=== PATIENT | female | born 1965 | race African-American/Black ===

== ENCOUNTER 2016-06-12 16:37 | Emergency (ER) | payer MEDICAID ==
[2016-06-12 17:15] VITALS: TEMP 100.2; BMI 30.5
[2016-06-12 17:39] LABS: AUTOMATED BASOPHIL 0.9 % (0-2); AUTOMATED EOSINOPHIL 0.7 % (0-5); AUTOMATED LYMPH 16.1 % (17-44); AUTOMATED MONOCYTE 6.8 % (3-10); AUTOMATED NEUTROPHIL 75.5 % (45-76); MPV 9.3 fL (7.4-10.4); RBC/URINE TNTC (0-5)
[2016-06-12 17:41] LABS: LEUKOCYTES/URINE NEG (NEGATIVE); NITRITE/URINE NEG (NEGATIVE); URINE OCCULT BLOOD 3+ (NEG/TRACE)
[2016-06-12 17:55] LABS: BLOOD UREA NITROGEN 12 MG/DL (7-17); CALCIUM 9.2 MG/DL (8.4-10.2); CALCULATED OSMOLALITY 270 MOs/Kg (270-290); CHLORIDE 102 mEq/L (98-107); GLUCOSE 110 MG/DL (70-99); SODIUM LEVEL 140 mEq/L (137-146); TOTAL PROTEIN 8.4 G/DL (6.3-8.2)
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
--- NOTE | 2016-06-12 20:19 | DIRPT ---
CLINICAL DATA: Current smoker presenting with acute onset of productive cough and low-grade fever. Patient also complains of right lower quadrant abdominal pain and vaginal bleeding. EXAM: CHEST 2 VIEW COMPARISON: None. FINDINGS: Cardiomediastinal silhouette unremarkable, unchanged. Lungs clear. Bronchovascular markings normal. Pulmonary vascularity normal. No visible pleural effusions. No pneumothorax. Mild degenerative changes involving the thoracic spine. IMPRESSION: No acute cardiopulmonary disease. Electronically Signed By: Wilfrid Triplett M.D. On: 06/12/2016 20:16
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
[2016-06-12] MEDS ORDERED: AZITHROMYCIN 250 MG TAB PO ONE (20:26)
[2016-06-12 21:00] VITALS: BP 148/77; PULSE 85
== END 2016-06-12 20:56 | disposition home or self-care (01) ==
LOC: ED 16:37
DX: J01.90 Acute sinusitis, unspecified (principal)
CPT/HCPCS: 36415; 71020; 74176; 80053; 81001; 81025; 85025; 99283; J3490

== ENCOUNTER 2016-06-13 18:32 | Emergency (ER) | payer MEDICAID ==
[2016-06-13 18:47] VITALS: BP 121/64; PULSE 84; TEMP 102.9; BMI 26.9
[2016-06-13] MEDS: ACETAMINOPHEN 325 MG/TAB TABLET PO ONE ×2 (18:56→18:58)
== END 2016-06-13 20:36 | disposition left against medical advice (07) ==
LOC: ED 18:32
DX: R10.9 Unspecified abdominal pain (principal)
CPT/HCPCS: J3490

== ENCOUNTER 2016-06-14 08:41 | Emergency (ER) | payer MEDICAID ==
[2016-06-14 08:51] VITALS: BP 126/70; PULSE 79; TEMP 98.8; BMI 29.9
--- NOTE | 2016-06-14 09:04 | EDPRACDOC ---
- General Information Chief Complaint: Abdominal Pain Stated Complaint: LOWER ABDOMINAL PAIN Time Seen by Provider: 06/14/16 08:56 Mode Of Arrival: Car Home Medications: Home Medications Azithromycin 250 mg PO DAILY #4 tablet 06/12/16 Hydrocodone Bit/Acetaminophen [Hydrocodon-Acetaminophen 5-325] 1 tab PO Q6 PRN # 20 tab 06/14/16 Allergies/Adverse Reactions: Allergies Allergy/AdvReac Type Severity Reaction Status Date / Time Iodinated Contrast Media - Allergy Difficulty Verified 06/14/16 08:51 IV Dye Breathing - History of Present Illness Onset: 4-5 DAYS HPI: PT COMPLAINS OF RLQ AND SUPRAPUBIC ABD PAIN X 4-5 DAYS WITH IRREGULAR VAGINAL BLEEDING, PT STATES TAKING ALEVE WITHOUT RELIEF. PT SEEN IN THE ED ON 06/12/16 FOR SAME, CT THEN SHOWED UTERINE FIBROIDS, PT STATES SHE DOES NOT HAVE A [employer] SURVEYOR. Pain Location: Reports: RLQ, Suprapubic Pain Context: Reports: Spontaneous Pain Severity: Severe Pain Quality: Reports: Cramping Pain Radiation: Reports: No Radiation Last Menstrual Period: 1 WK AGO Adult Abdominal History: Denies: Abdominal Surgery, Urolithiasis, Bowel Obstruction, Similar Pain (dx) Female Abdominal History: Denies: Abdominal Surgery, UTI, Ectopic, PID, Urolithiasis, Similar Pain (dx) Modifying Factors: improves with: Nothing Female Associated Signs & Symptoms: Reports: Nausea, Vaginal Bleeding. Denies: Frequency, Vomiting, Hematemesis, Anorexia, Diarrhea, Melena, Dysuria, Fever, Urgency, Hematuria, Chills, Vaginal Discharge Oral Intake: Normal Urinary Output: Normal - Treatment Prior to ED Arrival Reported Medications/Treatment MID LEVEL PROVIDER Treated With Medication MID LEVEL PROVIDER YES Ibuprofen/Acetaminophen (Dose/ ALEVE X 2-0230 Time) ED Past Medical History - History Reviewed Yes Nurses notes reviewed and agree except as marked No Past Medical History: Yes Patient has no past medical history - Patient Medical History Psychological History: Denies: Depression Surgical History: Denies: Hysterectomy - Social Medical History Smoking Status: Never smoker ETOH: None Substance Abuse: None EDM Review of Systems - Review of Systems Constitutional: negative: Chills, Fever Eyes: negative: Blurred Vision, Double Vision Ears: negative: Drainage Throat: negative: Pain Nose: negative: Congestion, Discharge Respiratory: negative: Cough, Shortness of Breath, Wheezing Cardiovascular: negative: Chest Pain, Palpitations Gastrointestinal: Nausea, Pain. negative: Diarrhea, Vomiting Genitourinary: Vaginal Bleeding. negative: Dysuria, Frequency Neurological: negative: Dizziness, Headache, Numbness, Weakness Musculoskeletal: No Symptoms Reported Integumentary: No Symptoms Reported - Physical Exam Constitutional: Alert (Awake), No apparent distress Oriented to: Time, Person, Place Last recorded Vital Signs: Last Vital Signs Temp 98.8 F 06/14/16 08:47 Pulse 79 06/14/16 08:47 Resp 18 06/14/16 08:47 BP 126/70 06/14/16 08:47 Pulse Ox 97 06/14/16 08:47 Oxygen Pulse Oxygen Saturation 97 O2 Device Oxygen Flow Rate Fraction of Inspired Oxygen ( FIO2) - HEENT Head: Normal ( normocephalic) Eye Exam: Normal (PERRL, EOMI, Sclera white) Oropharynx: Normal (Pharynx:Moist without exudate,Gums-no swelling) Tympanic Membrane: Normal ENT EAC: Normal TMJ: Normal Nose: No Symptoms Reported (septum midline) Neck: Normal (FROM, trachea at midline) - Respiratory/Cardiovascular Respiratory: Normal - CTA (BBS clear to auscultation without adventitious sounds ) Cardiovascular: Normal (RRR without murmur, gallop or rub) - GI Auscultation: Normal (NABS) Palpation: Normal (Soft,No rebound or guarding, non distended) Tenderness: Moderate, RLQ, LLQ, Suprapubic. negative: Rebound, Rigidity Coronado's Sign: Negative - Musculoskeletal Back: Normal (Non-Tender) Extremities: Normal (Normal tone, Pulses 2+ No cyanosis or edema, FROM) - Integumentary Skin: Normal, Warm, Dry Lymphatics: Normal (no adenopathy) - Neurologic Memory Impaired: Normal Motor Function: Normal (Normal tone, Pulses 2+ No cyanosis or edema, FROM) Cranial Nerve: Normal (CN II-X11 intact sensation, strength 5/5) Cerebellar: Normal Mood Description: Normal Perception: Normal - Differential Diagnosis Appendicitis, Cholecystitis, Cholelithiasis, Constipation, Diverticulitis, IBS, Pancreatitis, UTI - Additional Information RECORDS FROM 06/12/16 REVIEWED, PT HAD THOROUGH EVALUATION INCLUDING LABS (ALL NORMAL), CT UROGRAM WAS NON-ACUTE, DID SHOW NL APPENDIX AND UTERINE FIBROIDS. PT ADVISED OF PREVIOUS RESULTS, WILL NEED TO SEE PHARMACY INFORMATICS MANAGER. Decision Time to Discharge: 09:06 - Departure Disposition: Home Condition: Stable Final Diagnosis: Recurrent abdominal pain, UTERINE FIBROIDS Instructions: Abdominal Pain (ED), Uterine Fibroids (ED) Education/Counseling Given To: Patient, Family Member Education/Counseling Given Regarding: Diagnosis, Treatment, Prognosis, Follow Up Referrals: Sri Engle DO [Staff Physician] - One Week Prescriptions: New Hydrocodone Bit/Acetaminophen [Hydrocodon-Acetaminophen 5-325] 1 tab PO Q6 PRN #20 tab PRN Reason: Pain Continue Azithromycin 250 mg PO DAILY #4 tablet Additional Instructions: YOU MUST FOLLOW UP WITH [employer] SURVEYOR FOR FURTHER EVALUATION.
[2016-06-14] MEDS ORDERED: HYDROCODONE 5 MG/ACETAMIN 325 MG TAB PO ONE (09:08)
== END 2016-06-14 09:15 | disposition home or self-care (01) ==
LOC: ED 08:41
DX: D25.9 Leiomyoma of uterus, unspecified (principal); R10.30 Lower abdominal pain, unspecified
CPT/HCPCS: 99283; J3490

== ENCOUNTER 2016-06-16 21:20 | Emergency (ER) | payer MEDICAID ==
[2016-06-16 21:36] VITALS: TEMP 98.9; BMI 30.1
[2016-06-16] MEDS ORDERED: ONDANSETRON HCL 4 MG ODT TAB PO ONE (22:07)
[2016-06-16] MEDS ORDERED: MORPHINE 4 MG/ML INJECTION IM ONE (22:07)
[2016-06-16 22:32] LABS: MPV 9.7 fL (7.4-10.4)
[2016-06-16 22:38] LABS: LEUKOCYTES/URINE NEG (NEGATIVE); NITRITE/URINE NEG (NEGATIVE); RBC/URINE 0-2 (0-5); URINE OCCULT BLOOD NEG (NEG/TRACE); WBC/URINE 0-2 (0-5)
[2016-06-16 22:44] LABS: BLOOD UREA NITROGEN 10 MG/DL (7-17); CALC CORRECTED 8.9 MG/DL (8.4-10.2); CALCIUM 8.7 MG/DL (8.4-10.2); CALCULATED OSMOLALITY 269 MOs/Kg (270-290); CHLORIDE 103 mEq/L (98-107); GLUCOSE 109 mg/dL (70-99); SODIUM LEVEL 140 mEq/L (137-146); TOTAL PROTEIN 8.2 G/DL (6.3-8.2)
[2016-06-16 22:52] VITALS: BP 138/67; PULSE 78
--- NOTE | 2016-06-16 23:03 | EDPRACDOC ---
- General Information Chief Complaint: Vaginal Bleeding Stated Complaint: LOWER ABD PAIN WITH COUGH Time Seen by Provider: 06/16/16 21:37 Information Source: Patient Mode of Arrival: Car Home Medications: Home Medications Azithromycin 250 mg PO DAILY #4 tablet 06/12/16 Hydrocodone Bit/Acetaminophen [Hydrocodon-Acetaminophen 5-325] 1 tab PO Q6 PRN # 20 tab 06/14/16 Medroxyprogesterone [Provera] 10 mg PO DAILY #10 tab 06/16/16 Oxycodone Immediate Release [Oxycodone Immediate Release (OxyIR)] 5 mg PO Q6H PRN #20 tab 06/16/16 Allergies/Adverse Reactions: Allergies Allergy/AdvReac Type Severity Reaction Status Date / Time Iodinated Contrast Media - Allergy Difficulty Verified 06/14/16 08:51 IV Dye Breathing - History of Present Illness Onset: 1 WEEK HPI: PT PRESENTS WITH LOWER ABDOMINAL PAIN WITH STATED VAGINAL BLEEDING. SHE STATES SHE HAD SEVERAL DAYS OF VAGINAL BLEEDING AND WAS SEEN HERE ON 06/12/2016, RECORDS REVIEWED FROM THAT VISIT AND FROM 06/14/2016 VISIT. PT FOUND TO HAVE UTERINE FIBROIDS AND A UTI. STATES THE BLEEDING STOPPED AND THEN RESTARTED AGAIN. STATES SHE HAS BEEN SEEN AT TWO OTHER FACILITIES ([facility]) . SHE WAS INSTRUCTED HERE THAT SHE NEEDED TO BE SEEN BY AN ELECTRO MECHANICAL DESIGNER FOR FURTHER EVALUATION. SHE STATES SHE HAS ATTEMPTED TO DO THIS BUT HER PCP HAS NOT SENT A REFERRAL AT THIS TIME. Description: Reports: Spontaneous Location: Reports: Internal Vagina Relevant History: Reports: None Control Method: Reports: None Pain Severity: Moderate Vaginal Bleeding Description: Reports: Bright Red Associated Signs & Symptoms: Reports: Abdominal Pain, Vaginal Bleeding ED Past Medical History - History Reviewed Yes Nurses notes reviewed and agree except as marked - Patient Medical History GI/ History: Denies: Urinary Tract Infection Psychological History: Denies: Depression Surgical History: Denies: Hysterectomy - Social Medical History Smoking Status: Never smoker EDM Review of Systems - Review of Systems ROS Negative Except as Marked: Yes All systems reviewed and were negative except as marked - Physical Exam Constitutional: Alert Oriented to: Time, Person, Place Last recorded Vital Signs: Last Vital Signs Temp 98.9 F 06/16/16 21:30 Pulse 78 06/16/16 22:50 Resp 20 06/16/16 22:50 BP 138/67 06/16/16 22:50 Pulse Ox 95 06/16/16 22:50 Oxygen Pulse Oxygen Saturation 95 O2 Device Room Air Oxygen Flow Rate Fraction of Inspired Oxygen ( FIO2) - HEENT Head: Normal ( normocephalic) Eye Exam: Normal (PERRL, EOMI, Sclera white) Oropharynx: Normal (Pharynx:Moist without exudate,Gums-no swelling) Nose: No Symptoms Reported (septum midline) Neck: Normal (FROM, trachea at midline) - Respiratory/Cardiovascular Respiratory: Normal - CTA (BBS clear to auscultation without adventitious sounds ) Cardiovascular: Normal (RRR without murmur, gallop or rub) - GI Auscultation: Normal (NABS) Palpation: Normal (Soft,No rebound or guarding, non distended) Tenderness: Non tender Coronado's Sign: Negative Rectal Exam: Deferred - Musculoskeletal Back: Normal (Non-Tender) Extremities: Normal (Normal tone, Pulses 2+ No cyanosis or edema, FROM) - Integumentary Skin: Normal, Warm, Dry Lymphatics: Normal (no adenopathy) - Neurologic Memory Impaired: Normal Motor Function: Normal (Normal tone, Pulses 2+ No cyanosis or edema, FROM) Cranial Nerve: Normal (CN II-X11 intact sensation, strength 5/5) Cerebellar: Normal Mood Description: Normal Perception: Normal - Differential Diagnosis Other - Results 06/16/16 22:15 06/16/16 22:15 WBC 5.0 xk/uL (3.8-10.8) 06/16/16 22:15 RBC 3.55 xM/uL (4.20-5.40) L 06/16/16 22:15 Hgb 11.7 g/dL (12.0-16.0) L 06/16/16 22:15 Hct 34.9 % (36-47) L 06/16/16 22:15 MCV 98 fL (81-99) 06/16/16 22:15 MCH 33.1 pg (27-32) H 06/16/16 22:15 MCHC 33.7 g/dl (33-36) 06/16/16 22:15 RDW 13.2 % (11.5-14.5) 06/16/16 22:15 Plt Count 289 xk/uL (130-400) 06/16/16 22:15 MPV 9.7 fL (7.4-10.4) 06/16/16 22:15 Sodium 140 mEq/L (137-146) 06/16/16 22:15 Potassium 3.9 mEq/L (3.5-5.1) 06/16/16 22:15 Chloride 103 mEq/L (98-107) 06/16/16 22:15 Carbon Dioxide 27 mMOL/L (22-33) 06/16/16 22:15 Anion Gap 14 mEq/L (8-16) 06/16/16 22:15 BUN 10 MG/DL (7-17) 06/16/16 22:15 Creatinine 0.50 MG/DL (0.52-1.04) L 06/16/16 22:15 Estimated GFR (MDRD) > 60 mL/min (>=60) 06/16/16 22:15 Glucose 109 mg/dL (70-99) H 06/16/16 22:15 Calculated Osmolality 269 MOs/Kg (270-290) L 06/16/16 22:15 Calcium 8.7 MG/DL (8.4-10.2) 06/16/16 22:15 Corrected Calcium 8.9 MG/DL (8.4-10.2) 06/16/16 22:15 Total Bilirubin 0.5 MG/DL (0.2-1.3) 06/16/16 22:15 AST 39 IU/L (14-36) H 06/16/16 22:15 ALT 60 IU/L (9-52) H 06/16/16 22:15 Alkaline Phosphatase 88 IU/L (38-126) 06/16/16 22:15 Total Protein 8.2 G/DL (6.3-8.2) 06/16/16 22:15 Albumin 3.8 G/DL (3.5-5.0) 06/16/16 22:15 Urine Color Yellow 06/16/16 22:15 Urine Clarity Clear 06/16/16 22:15 Urine pH 8.0 (5.0-8.0) 06/16/16 22:15 Ur Specific [place] 1.005 (1.003-1.035) 06/16/16 22:15 Urine Protein Neg (NEG/TRACE) 06/16/16 22:15 Urine Glucose (UA) Neg (NEGATIVE) 06/16/16 22:15 Urine Ketones Neg (NEGATIVE) 06/16/16 22:15 Urine Occult Blood Neg (NEG/TRACE) 06/16/16 22:15 Urine Nitrite Neg (NEGATIVE) 06/16/16 22:15 Urine Bilirubin Neg (NEGATIVE) 06/16/16 22:15 Urine Urobilinogen <2.0 MG/DL (0-1) 06/16/16 22:15 Ur Leukocyte Esterase Neg (NEGATIVE) 06/16/16 22:15 Urine RBC 0-2 (0-5) 06/16/16 22:15 Urine WBC 0-2 (0-5) 06/16/16 22:15 Ur Epithelial Cells 1+ 06/16/16 22:15 Urine Bacteria Few (NEG/FEW) 06/16/16 22:15 Urine Mucus Occ (NEG/OCC) 06/16/16 22:15 Lab Results 06/16/16 06/16/16 02 22:15 22:15 22:15 WBC 5.0 RBC 3.55 L Hgb 11.7 L Hct 34.9 L MCV 98 MCH 33.1 H MCHC 33.7 RDW 13.2 Plt Count 289 MPV 9.7 Sodium 140 Potassium 3.9 Chloride 103 Carbon Dioxide 27 Anion Gap 14 BUN 10 Creatinine 0.50 L Estimated GFR (MDRD) > 60 Glucose 109 H Calculated Osmolality 269 L Calcium 8.7 Corrected Calcium 8.9 Total Bilirubin 0.5 AST 39 H ALT 60 H Alkaline Phosphatase 88 Total Protein 8.2 Albumin 3.8 Urine Color Yellow Urine Clarity Clear Urine pH 8.0 Ur Specific [place] 1.005 Urine Protein Neg Urine Glucose (UA) Neg Urine Ketones Neg Urine Occult Blood Neg Urine Nitrite Neg Urine Bilirubin Neg Urine Urobilinogen <2.0 Ur Leukocyte Esterase Neg Urine RBC 0-2 Urine WBC 0-2 Ur Epithelial Cells 1+ Urine Bacteria Few Urine Mucus Occ Decision Time to Discharge: 23:04 - Departure Disposition: Home Condition: Stable Final Diagnosis: Dysfunctional uterine bleeding Instructions: Dysfunctional Uterine Bleeding (ED) Education/Counseling Given To: Patient Education/Counseling Given Regarding: Diagnosis, Treatment, Prognosis, Follow Up Referrals: Mackenzie Alan MD [Primary Care Provider] - One Week Marilee Morrell MD [Staff Physician] - One Week Prescriptions: New Oxycodone Immediate Release [Oxycodone Immediate Release (OxyIR)] 5 mg PO Q6H PRN #20 tab PRN Reason: Pain Medroxyprogesterone [Provera] 10 mg PO DAILY #10 tab No Action Azithromycin 250 mg PO DAILY #4 tablet Hydrocodone Bit/Acetaminophen [Hydrocodon-Acetaminophen 5-325] 1 tab PO Q6 PRN #20 tab PRN Reason: Pain Additional Instructions: PLEASE MAKE A FOLLOW UP APPOINTMENT WITH ELECTRO MECHANICAL DESIGNER.
== END 2016-06-16 23:20 | disposition home or self-care (01) ==
LOC: ED 21:20
DX: N93.8 Other specified abnormal uterine and vaginal bleeding (principal)
CPT/HCPCS: 36415; 80053; 81001; 85027; 96372; 99283; J2270; J3490